=== PATIENT | male | born 1980 | race Caucasian/White ===

== ENCOUNTER 2025-05-21 15:30 | Emergency (ER) | payer SELFPAY ==
[~2025-05-21] VITALS: Ht 160 cm; Wt 82.0 kg
[2025-05-21 15:43] VITALS: O2SAT 99
[2025-05-21] MEDS: ACETAMINOPHEN 500MG TABLET PO ONE (17:07)
[2025-05-21] MEDS: MORPHINE SULFATE 4 MG/ML INJ (FOR IV/IM USE) IV ONE (19:21)
[2025-05-21 20:04] LABS: CHLORIDE 106 mEq/L (98-107); POTASSIUM 3.5 mEq/L (3.5-5.1); SODIUM 141 mEq/L (136-145)
[2025-05-21 20:05] LABS: CALCIUM 9.2 mg/dL (8.7-10.4); CARBON DIOXIDE 26 mEq/L (21-32)
[2025-05-21 20:10] LABS: CREATININE 1.1 mg/dL (0.6-1.3); GLUCOSE 113 mg/dL (70-105); UREA NITROGEN BLOOD 10 mg/dL (9-23)
[2025-05-21] MEDS ORDERED: IBUP-2029 MT (22:05)
[2025-05-21 22:12] VITALS: BP 150/97; PULSE 63; RESP 18; TEMP 36.7; O2SAT 99
[2025-05-21] MEDS ORDERED: IOHEXOL-300 100 ML BOTTLE ONE (23:51)
== END 2025-05-21 22:14 | disposition home or self-care (01) ==
LOC: ER 15:30
DX: M45.9 Ankylosing spondylitis of unspecified sites in spine (principal); R10.9 Unspecified abdominal pain; Z90.49 Acquired absence of other specified parts of digestive tract; Z79.899 Other long term (current) drug therapy
CPT/HCPCS: 99285; 72131; 96374; 80048; 36415; 71101; 74177; Q9967; J2270